=== PATIENT | male | born 1975 | race Caucasian/White ===

== ENCOUNTER 2025-02-21 06:40 | Day surgery (SDC) | payer BC, SELFPAY ==
[2025-02-20 14:41] VITALS: BMI 28.8
[2025-02-21] VITALS (10 sets, daily range): BP systolic 111–148; BP diastolic 76–101; PULSE 66–78; RESP 12–18; TEMP 36.6–36.7; O2SAT 92–100; BMI 28.7
[2025-02-21] MEDS: SODIUM CHLORIDE 0.9% 500 ML 500 ML 20 ML IV (08:08)
[2025-02-21] MEDS: LIDOCAINE JELLY 2% (Urojet) 10 ML TUBE TOP (08:08)
[2025-02-21] MEDS: MIDAZOLAM INJ 1 MG/ML VIAL 2 ML (ASD USE ONLY) 2 MG IVP (08:14)
[2025-02-21] MEDS: fentaNYL CIT INJ 50 mCg/ML AMP 2ML (ASD USE ONLY) IVP (08:17)
== END 2025-02-21 09:24 | disposition home or self-care (01) ==
PROVIDERS: PCP Physician Assistant; Referring Provider Surgery; Visit Provider Surgery
PROC: 0DBE8ZX Excision of Large Intestine, Via Natural or Artificial Opening Endoscopic, Diagnostic (ICD-10-PCS; CPT 45380; principal; 2025-02-21 08:00)
DX: K64.1 Second degree hemorrhoids (principal); K62.5 Hemorrhage of anus and rectum; I10 Essential (primary) hypertension; Z79.899 Other long term (current) drug therapy
CPT/HCPCS: 45378; A4649; J1200; J2250; J3010; J7999

== ENCOUNTER → 2025-03-02 | Outpatient (CLI) | payer BC, SELFPAY ==
[2025-03-02 11:47] LABS: Thyroid Stimulating Hormone 4.90 uIU/mL (0.55-4.78)
[2025-03-08 06:21] LABS: ANA Pattern NUCLEAR, HOMOGENEOUS; ANA Screen, IFA POSITIVE (NEGATIVE); ANA Titer 1:40 titer
== END | disposition home or self-care (01) ==
LOC: COPL 10:36
PROVIDERS: PCP Family Medicine; Referring Provider Specialist; Visit Provider Specialist
DX: E78.9 Disorder of lipoprotein metabolism, unspecified (principal)
CPT/HCPCS: 36415; 84443; 86038

== ENCOUNTER 2025-04-21 08:35 | Day surgery (SDC) | payer BC, SELFPAY ==
[2025-04-20 13:36] VITALS: BMI 27.6
[2025-04-21] VITALS (12 sets, daily range): BP systolic 124–186; BP diastolic 84–119; PULSE 75–99; RESP 14–22; TEMP 36.4–36.5; O2SAT 93–100; BMI 28.6
[2025-04-21] MEDS: SODIUM CHLORIDE 0.9% 500 ML 500 ML 20 ML IV (10:33)
[2025-04-21] MEDS: BENZOCAINE 20% (Hurricaine) SPRAY 1 DOSE TOP (10:33)
[2025-04-21] MEDS: fentaNYL CIT INJ 50 mCg/ML AMP 2ML (ASD USE ONLY) IVP ×2 (10:36→10:53)
[2025-04-21] MEDS: MIDAZOLAM INJ 1 MG/ML VIAL 2 ML (ASD USE ONLY) 2 MG IVP ×2 (10:36→10:53)
[2025-04-21] MEDS: hydrALAZINE INJ 20 MG/ML VIAL 10 MG IVP (10:48)
== END 2025-04-21 12:00 | disposition home or self-care (01) ==
PROVIDERS: PCP Physician Assistant; Referring Provider Specialist; Visit Provider Specialist
PROC: (CPT 43239; principal; 2025-04-21 09:00)
DX: K22.2 Esophageal obstruction (principal); K20.90 Esophagitis, unspecified without bleeding; K29.70 Gastritis, unspecified, without bleeding; K22.10 Ulcer of esophagus without bleeding; I10 Essential (primary) hypertension; E78.5 Hyperlipidemia, unspecified
CPT/HCPCS: 43248; 43249; 43239; A4649; C1726; C1769; J0360; J1200; J2250; J3010; J7999; A9270